=== PATIENT | female | born 2000 | race Caucasian/White ===

== ENCOUNTER 2023-06-18 18:45 | Emergency (ER) | payer OTHER, SELFPAY ==
[2023-06-18 19:02] VITALS: BP 99/52; PULSE 86; RESP 18; TEMP 36.9; O2SAT 100
--- NOTE | 2023-06-18 19:34 | ED.GENADULT ---
HPI - General Adult General Chief complaint: Upper Respiratory Infection Stated complaint: Congestion/Cough Source: patient Mode of arrival: ambulatory Limitations: no limitations History of Present Illness HPI narrative: Patient presents for evaluation of sick symptoms for the last 3-4 days. Symptoms include sinus congestion, clear rhinorrhea, sore throat, and nonproductive cough. She had an episode of vomiting during a coughing episode. No recent sick contacts. She is currently 28 weeks gestation. . She tried to get in with her OBGYN but was unable to secure an appt. She is not experiencing any abdominal pain or vaginal bleeding. She simply came in for a work note to excuse her from work today. Related Data Home Medications Medication Instructions Recorded Confirmed albuterol sulfate 90 mcg/actuation inhalation 06/18/23 aerosol inhaler ondansetron 4 mg disintegrating mg 06/18/23 tablet Allergies Allergy/AdvReac Type Severity Reaction Status Date / Time Latex, Natural Rubber Allergy Rash Verified 06/18/23 19:11 Review of Systems Review of Systems: CONSTITUTIONAL: Denies fever, chills, or sweats. EYES: Denies visual changes, redness, or discharge. ENT: Reports sinus congestion, clear rhinorrhea, sore throat. CARDIOVASCULAR: Denies chest pain, palpitations, or edema. RESPIRATORY: Reports cough. Denies shortness of breath. GASTROINTESTINAL: Denies abdominal pain, nausea, vomiting, or diarrhea. GENITOURINARY: Denies dysuria or hematuria. SKIN: Denies rash or itching. MUSCULOSKELETAL: Denies back pain, joint pain, or myalgia. NEUROLOGIC: Denies headache, numbness, dizziness, or weakness. PSYCHIATRIC: Denies anxiety or depression. [facility] Past Medical History Medical History No pertinent past medical history Surgical History Surgical History No pertinent past surgical history Family History Family History Mother Family history non-contributory Social History Social History Substance use: never Gender identity (if verbalized by the patient): Female Exam Narrative: GENERAL: Well-appearing, well-nourished, and in no acute distress. HEAD: Normocephalic, atraumatic. EYES: PERRLA and EOMI. ENT: Nares clear, no rhinorrhea or epistaxis. Mucous membranes moist. Oropharynx without tonsillar hypertrophy exudate or other lesions. Bilateral TMs pearly foreman nonbulging NECK: Supple. No adenopathy or masses. No carotid bruits or JVD CHEST: Clear to auscultation. No respiratory distress. No wheezes rales or rhonchi HEART: Regular rate and rhythm. No murmur heard. Normal peripheral pulses. ABDOMEN: Soft, nontender, nondistended, normal active bowel sounds. EXTREMITIES: Normal range of motion. No edema. SKIN: Warm, dry, no rash. NEURO: No focal deficits. Alert and oriented x3. PSYCH: Normal mood and affect. Course Course Emergency Course: This is a 22-year-old female who presented for evaluation of sick symptoms. COVID, strep, influenza were all negative. Likely viral in origin. Increase hydration. Contact OBGYN tomorrow. Go to the emergency department for worsening symptoms. Patient in agreement with plan care Level of Care: Express Care Visit Vital Signs Vital signs: Vital Signs Temperature 36.9 C 06/18/23 19:02 Pulse Rate 86 06/18/23 19:02 Respiratory Rate 18 06/18/23 19:02 Blood Pressure 99/52 L 06/18/23 19:02 Pulse Oximetry 100 06/18/23 19:02 Oxygen Delivery Room Air 06/18/23 19:02 Temperature 36.9 C 06/18/23 19:02 Pulse Rate 86 06/18/23 19:02 Respiratory Rate 18 06/18/23 19:02 Blood Pressure 99/52 L 06/18/23 19:02 Pulse Oximetry 100 06/18/23 19:02 Oxygen Delivery Room Air
== END 2023-06-18 19:36 | disposition home or self-care (01) ==
PROVIDERS: Emergency Provider Nurse Practitioner
DX: O99.513 Diseases of the respiratory system complicating pregnancy, third trimester (principal); Z3A.28 28 weeks gestation of pregnancy; J06.9 Acute upper respiratory infection, unspecified; Z20.822 Contact with and (suspected) exposure to COVID-19
CPT/HCPCS: 87081; 87426; 87804; 87880; 99213; C9803; G0463